=== PATIENT | male | born 1970 | race Hispanic/Latino ===

== ENCOUNTER 2019-02-15 12:19 | Emergency (ER) | payer SELFPAY ==
[2019-02-15 12:48] LABS: RAPID GROUP A STREP NEGATIVE (NEGATIVE)
== END 2019-02-15 13:42 | disposition home or self-care (01) ==
LOC: EDH 12:19
DX: J20.9 Acute bronchitis, unspecified (principal); J30.9 Allergic rhinitis, unspecified; E11.9 Type 2 diabetes mellitus without complications; I10 Essential (primary) hypertension
CPT/HCPCS: 71046; 87804; 87880

== ENCOUNTER 2022-03-17 17:16 | Emergency (ER) | payer OTHER ==
[~2022-03-17] VITALS: Ht 170.2 cm; Wt 108.9 kg
[2022-03-17 17:20] VITALS: BP 135/89
== END 2022-03-17 19:11 | disposition left against medical advice (07) ==
LOC: EDH 17:16
DX: M54.50 Low back pain, unspecified (principal); Z53.21 Procedure and treatment not carried out due to patient leaving prior to being seen by health care provider

== ENCOUNTER 2022-12-31 22:19 | Emergency (ER) | payer OTHER ==
[~2022-12-31] VITALS: Ht 170.2 cm; Wt 92.5 kg
[2022-12-31 22:20] VITALS: BP 136/83
[2022-12-31] MEDS ORDERED: NAPR-1180 PO (23:42)
[2023-01-01] MEDS ORDERED: LIDOCAINE 5% TOPICAL PATCH TP ONE
[2023-01-01] MEDS ORDERED: MORPHINE 4 MG SYG IM ONE
[2023-01-01] MEDS ORDERED: ONDANSETRON ODT 4MG TAB SL ONE
== END 2022-12-31 23:54 | disposition home or self-care (01) ==
LOC: EDH 22:19
DX: S40.011A Contusion of right shoulder, initial encounter (principal); R07.81 Pleurodynia; E11.9 Type 2 diabetes mellitus without complications; X58.XXXA Exposure to other specified factors, initial encounter; Y93.01 Activity, walking, marching and hiking; Y92.89 Other specified places as the place of occurrence of the external cause; Y99.8 Other external cause status
CPT/HCPCS: 99284; 73030; 71101; 96372; J2270